=== PATIENT | male | born 1980 | race African-American/Black ===

== ENCOUNTER 2019-01-02 17:24 | Emergency (ER) | payer OTHER ==
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
[2019-01-02 17:50] VITALS: BP 141/83; PULSE 60; TEMP 97.8; BMI 29.2
[2019-01-02 18:18] LABS: BASO % 0.6 % (0-2.0); EOS % 5.1 % (0-4.5); HEMATOCRIT 49.9 % (35.4-49); HEMOGLOBIN 17.1 GM/dL (11.7-16.9); LYMPH % 18.3 % (8-40); MCH 31.5 pg (25.7-33.7); MCHC 34.3 g/dl (32.0-35.9); MEAN CELL VOLUME 91.9 fl (80-96); MEAN PLT VOLUME 10.2 fl (7.5-11.1); MONO % 6.8 % (3.8-10.2); NEUT % 69.2 % (42.8-82.8); PLATELET COUNT 147 K/MM3 (134-434); RBC 5.42 M/mm3 (4.00-5.60); RDW 13.9 % (11.9-15.9)
[2019-01-02] MEDS ORDERED: IBUPROFEN 600 MG TABLET (FP) PO ONE ×2 (18:30→18:32)
[2019-01-02 18:41] LABS: ALK PHOS 103 U/L (45-117); ANION GAP 6 MMOL/L (8-16); BILIRUBIN,TOTAL 0.5 mg/dL (0.2-1); BLOOD UREA NITROGEN 20 mg/dL (7-18); CALCIUM 9.2 mg/dL (8.5-10.1); CHLORIDE 108 mmol/L (98-107); CO2 29 mmol/L (21-32); CREATININE 1.4 mg/dL (0.55-1.3); GLUCOSE,RANDOM 88 mg/dL (74-106); POTASSIUM 4.2 mmol/L (3.5-5.1); SGOT/AST 26 U/L (15-37); SGPT/ALT 33 U/L (13-61); SODIUM 142 mmol/L (136-145); TOT PROT 7.4 g/dl (6.4-8.2)
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
[2019-01-02] MEDS ORDERED: HIV POST EXPOSURE PROPHYLAXIS KIT NR ONE (19:49)
[2019-01-02] MEDS ORDERED: HIV POST EXPOSURE PROPHYLAXIS KIT PO ONE (19:54)
[2019-01-04 03:16] LABS: HBsAG SCREEN Negative (Negative)
== END 2019-01-02 20:17 | disposition home or self-care (01) ==
LOC: JERFT 17:24
DX: S20.172A Other superficial bite of breast, left breast, initial encounter (principal); W50.3XXA Accidental bite by another person, initial encounter; Y93.89 Activity, other specified; Y92.118 Other place in children's home and orphanage as the place of occurrence of the external cause; Y99.0 Civilian activity done for income or pay
CPT/HCPCS: 36415; 80053; 85025; 86317; 86706; 86803; 87340; 87389; 99281-25